=== PATIENT | female | born 1970 | race Caucasian/White ===

== ENCOUNTER → 2024-03-03 | Outpatient (CLI) | payer OTHER, SELFPAY ==
--- NOTE | 2024-03-03 14:58 | BI_ITS ---
MAMMOGRAPHY - BILATERAL SCREENING REASON FOR EXAM: Female, 53 years old. Routine annual screening examination. PERTINENT HISTORY: Mother with breast cancer. Grandmother with breast cancer. History of prior needle biopsy. TECHNIQUE: Digital bilateral breast shamar (3D mammographic acquisition) in the CC and MLO projections. 2-D mediolateral oblique (MLO) and craniocaudad (CC) views of both breasts were obtained. CAD: Full Field Digital Mammography with Computer Added Detection was performed. COMPARISON: Comparison is made with prior outside examination dated April 17, 2021. FINDINGS: Breast Composition: There are scattered areas of fibroglandular density. There are no dominant masses or suspicious calcifications. Stable 1.2 cm well-defined nodule in the central deep medial aspect of the right breast. Correlation with ultrasound is recommended. No other significant abnormalities are identified. BI/SCRN MAMM (CAD)W/SHAMAR BILAT IMPRESSION: 1.2 cm well-defined nodule in the deep central medial aspect of the right breast. Correlation with ultrasound is recommended. ASSESSMENT CATEGORY: BIRADS Category 0: Incomplete. Need additional imaging evaluation. A letter regarding these results will be sent to the patient by the facility within 30 days. Approximately 10% of breast cancers are not detected by mammography. A normal mammogram should not delay biopsy of a clinically suspicious abnormality. [id number] Electronically Signed: Lowell Cornejo MD at 8:27 EDT ,
--- NOTE | 2024-03-03 14:58 | US_ITS ---
STUDY: ULTRASOUND TRANSVAGINAL CLINICAL: Female, 53 years old. BLEEDING TECHNIQUE: Transvaginal COMPARISON: None. FINDINGS: Normal uterine size measuring 10 x 6.2 x 4.8 cm in maximal craniocaudal dimension. There are no myometrial masses. Thickened endometrial lining approximately 11.3 mm in thickness. There are no endometrial masses, and there is no fluid in the endometrial cavity. Normal uterine cervix. Normal right ovary, measuring 2.7 x 2.2 x 1.9 cm. There are multiple follicles without a dominant cyst. Normal left ovary, measuring 3.1 x 2 x 2.3 cm. There are multiple follicles without a dominant cyst. There is no free fluid in the pelvis. US/Transvaginal Non- IMPRESSION: Increased endometrial lining thickness for postmenopausal status. Possibility of endometrial hyperplasia or neoplasia not excluded. Clinical correlation recommended Electronically Signed: Julio Cesar Mcgraw MD at 16:41 EDT ,
== END | disposition home or self-care (01) ==
LOC: OPUS 14:55
PROVIDERS: PCP Family Medicine
DX: Z01.411 Encounter for gynecological examination (general) (routine) with abnormal findings (principal); Z12.31 Encounter for screening mammogram for malignant neoplasm of breast; E28.2 Polycystic ovarian syndrome; N95.0 Postmenopausal bleeding
CPT/HCPCS: 76830; 77063; 77067

== ENCOUNTER → 2024-03-11 | Outpatient (CLI) | payer OTHER, SELFPAY ==
--- NOTE | 2024-03-11 13:48 | US_ITS ---
STUDY: ULTRASOUND BREAST - RIGHT REASON FOR EXAM: Female, 54 years old. Abnormal screening mammogram. TECHNIQUE: Axial and longitudinal images of the RIGHT breast were performed with a high resolution ultrasound transducer. # OF IMAGES: 49 COMPARISON: Comparison is made with prior examination dated March 03, 2024. FINDINGS: RIGHT Breast: The medial half of the right breast was examined with ultrasound. No sonographic abnormality is seen. Additional mammographic views including 90 degree lateral and compression spot views will be obtained. US/Breast Limited Unilateral IMPRESSION: Unremarkable sonographic examination. The patient will have additional mammographic views. ASSESSMENT CATEGORY: BIRADS Category 0: Incomplete. Need additional imaging evaluation. A letter regarding these results will be sent to the patient by the facility within 30 days. Electronically Signed: Lowell Cornejo MD at 15:21 EDT ,
--- NOTE | 2024-03-11 14:32 | BI_ITS ---
MAMMOGRAPHY - UNILATERAL DIAGNOSTIC: RIGHT BREAST REASON FOR EXAM: Female, 54 years old. Abnormal screening mammogram. PERTINENT HISTORY: TECHNIQUE: Compression spot views of the right breast were obtained in the mediolateral oblique and craniocaudad projections. CAD: Full Field Digital Mammography with Computer Added Detection was performed. COMPARISON: Comparison is made with prior mammogram dated March 03, 2024 and prior outside examination dated April 17, 2021. FINDINGS: Breast Composition: There are scattered areas of fibroglandular density. Persistent 1.2 some well-defined nodule in the central deep medial aspect of the breast. The sonogram of this region was negative. This may represent asymmetrical breast tissue. Routine mammographic follow-up recommended. No other significant abnormalities are identified. BI/DIAG MAMM W/CAD, UNILAT IMPRESSION: Negative unilateral diagnostic mammogram. Yearly followup mammogram recommended. (A) ASSESSMENT CATEGORY: BIRADS Category 2: Benign. A letter regarding these results will be sent to the patient by the facility within 30 days. Approximately 10% of breast cancers are not detected by mammography. A normal mammogram should not delay biopsy of a clinically suspicious abnormality. Electronically Signed: Lowell Cornejo MD at 15:01 EDT ,
== END | disposition home or self-care (01) ==
LOC: OPUS 13:46
PROVIDERS: PCP Family Medicine
DX: R92.8 Other abnormal and inconclusive findings on diagnostic imaging of breast (principal)
CPT/HCPCS: 76642; 77065